=== PATIENT | female | born 1945 | race Caucasian/White ===

== ENCOUNTER 2018-03-14 18:40 | Emergency (ER) | payer OTHER ==
[2018-03-14] MEDS: IPRATROPIUM (NEB) 0.5 MG/2.5 ML AMP INH (19:15)
[2018-03-14] MEDS: LEVALBUTEROL (NEB) 1.25 MG/0.5 ML AMP HHN (19:15)
[2018-03-14 19:31] LABS: ADD MAN DIFF? NO
[2018-03-14 19:35] LABS: BASOPHILS % 0.5 % (0.0-2.0); EOSINOPHILS # 0.3 10^3/ul (0.0-0.5); EOSINOPHILS % 3.3 % (0.0-7.0); HEMATOCRIT 39.7 % (37.0-47.0); HEMOGLOBIN 13.1 g/dl (12.0-16.0); LYMPHOCYTES # 3.1 10^3/ul (0.8-2.9); LYMPHOCYTES % 36.1 % (15.0-51.0); MEAN CORPUSCULAR HEMOGLOBIN 27.5 pg (29.0-33.0); MEAN CORPUSCULAR VOLUME 83.2 fl (82.0-101.0); MEAN PLATELET VOLUME 12.3 fl (7.4-10.4); MONOCYTE # 0.7 10^3/ul (0.3-0.9); MONOCYTES % 8.4 % (0.0-11.0); NEUTROPHIL # 4.4 10^3/ul (1.6-7.5); NEUTROPHILS % 51.5 % (39.0-77.0); PLATELET COUNT 196 10^3/UL (140-415); RED BLOOD COUNT 4.77 10^6/ul (4.20-5.40); RED CELL DISTRIBUTION WIDTH 14.4 % (11.5-14.5)
[2018-03-14 19:35] LABS: WHITE BLOOD COUNT 8.5 10^3/ul (4.8-10.8)
[2018-03-14] MEDS: ACETAMINOPHEN 325 MG TAB PO (19:39)
[2018-03-14 19:48] LABS: ANION GAP 14 (8-16); BLOOD UREA NITROGEN 12 mg/dl (7-20); CALCIUM 9.1 mg/dl (8.4-10.2); CARBON DIOXIDE 24 mmol/L (21-31); CHLORIDE 104 mmol/L (97-110); CREATININE 0.73 mg/dl (0.44-1.00); GLUCOSE 112 mg/dl (70-220); SODIUM 138 mmol/L (135-144)
[2018-03-14 19:57] LABS: B-TYPE NATRIURETIC PEPTIDE 541 PG/ML (0-125)
[2018-03-14 20:08] LABS: INR 0.99; PARTIAL THROMBOPLASTIN TIME 29.2 Sec (25.0-35.0); PROTIME 13.2 Sec (11.9-14.9)
== END 2018-03-14 20:37 | disposition home or self-care (01) ==
LOC: E/R 18:40
DX: J40 Bronchitis, not specified as acute or chronic (principal); R40.2142 Coma scale, eyes open, spontaneous, at arrival to emergency department; I50.9 Heart failure, unspecified; I10 Essential (primary) hypertension; R40.2252 Coma scale, best verbal response, oriented, at arrival to emergency department; R40.2362 Coma scale, best motor response, obeys commands, at arrival to emergency department
CPT/HCPCS: 36415; 71045; 80048; 83880; 85025; 85610; 85730; 93005; 94664; 99285-25

== ENCOUNTER 2019-05-26 18:03 | Inpatient (IN) | payer OTHER ==
[2019-05-26 18:19] LABS: ADD MAN DIFF? NO
[2019-05-26 18:23] LABS: BASOPHILS % 0.4 % (0.0-2.0); EOSINOPHILS # 0.1 10^3/ul (0.0-0.5); HEMATOCRIT 42.1 % (37.0-47.0); HEMOGLOBIN 13.7 g/dl (12.0-16.0); LYMPHOCYTES # 3.4 10^3/ul (0.8-2.9); LYMPHOCYTES % 40.3 % (15.0-51.0); MEAN CORPUSCULAR HEMOGLOBIN 27.1 pg (29.0-33.0); MEAN CORPUSCULAR HGB CONC 32.5 g/dl (32.0-37.0); MEAN CORPUSCULAR VOLUME 83.4 fl (82.0-101.0); MEAN PLATELET VOLUME 12.6 fl (7.4-10.4); MONOCYTE # 0.6 10^3/ul (0.3-0.9); MONOCYTES % 7.7 % (0.0-11.0); NEUTROPHIL # 4.2 10^3/ul (1.6-7.5); NEUTROPHILS % 50.2 % (39.0-77.0); PLATELET COUNT 166 10^3/UL (140-415); RED BLOOD COUNT 5.05 10^6/ul (4.20-5.40); RED CELL DISTRIBUTION WIDTH 15.3 % (11.5-14.5)
[2019-05-26 18:23] LABS: WHITE BLOOD COUNT 8.3 10^3/ul (4.8-10.8)
[2019-05-26] MEDS: SOD CHLORIDE 0.9% 1,000 ML IV (18:37)
[2019-05-26] MEDS: ASPIRIN 300 MG SUPP PR (18:38)
[2019-05-26 18:41] LABS: ALANINE AMINOTRANSFERASE 32 IU/L (13-69); ALBUMIN 4.2 g/dl (3.3-4.9); ALBUMIN/GLOBULIN RATIO 1.02; ALKALINE PHOSPHATASE 170 IU/L (42-121); ANION GAP 9 (5-13); ASPARTATE AMINO TRANSFERASE 39 IU/L (15-46); BILIRUBIN,INDIRECT 0.4 mg/dl (0-1.1); BILIRUBIN,TOTAL 0.4 mg/dl (0.2-1.3); BLOOD UREA NITROGEN 17 mg/dl (7-20); CALCIUM 9.3 mg/dl (8.4-10.2); CARBON DIOXIDE 27 mmol/L (21-31); CHLORIDE 103 mmol/L (97-110); CHOL/HDL RATIO 3.8 RATIO; CHOLESTEROL 194 mg/dl (100-200); CREATINE KINASE 69 IU/L (23-200); CREATININE 0.63 mg/dl (0.44-1.00); GLUCOSE 131 mg/dl (70-220); HDL CHOLESTEROL 50 mg/dl (33-92); LDL CHOLESTEROL,CALCULATED 106 mg/dl; POTASSIUM 4.2 mmol/L (3.5-5.1); SODIUM 139 mmol/L (135-144); TOTAL PROTEIN 8.3 g/dl (6.1-8.1); TRIGLYCERIDES 190 mg/dl (0-149)
[2019-05-26 18:44] LABS: INR 0.95; PARTIAL THROMBOPLASTIN TIME 29.1 Sec (23.0-35.0); PROTIME 12.8 Sec (11.9-14.9)
[2019-05-26 18:49] LABS: CK INDEX 0.6; CK-MB 0.44 ng/ml (0.0-2.4)
[2019-05-26 18:52] LABS: ETHANOL < 10.0 mg/dl (0-0)
[2019-05-26 18:54] LABS: TROPONIN-I < 0.012 ng/ml (0.000-0.120)
[2019-05-26] MEDS: ENALAPRILAT 1.25 MG INJ IV (19:04)
[2019-05-26] MEDS: CLOPIDOGREL 75 MG TAB PO (19:04)
[2019-05-26 19:14] LABS: ADD UMIC NO; UR ASCORBIC ACID NEGATIVE (NEGATIVE); UR BILIRUBIN (Dip) NEGATIVE (NEGATIVE); UR BLOOD (Dip) NEGATIVE (NEGATIVE); UR CLARITY CLEAR (CLEAR); UR COLOR STRAW (YELLOW); UR GLUCOSE (Dip) NEGATIVE (NEGATIVE); UR KETONES (Dip) NEGATIVE (NEGATIVE); UR LEUKOCYTE ESTERASE (Dip) NEGATIVE Leu/ul (NEGATIVE); UR NITRITE (Dip) NEGATIVE (NEGATIVE); UR SPECIFIC GRAVITY (Dip) 1.006 (1.003-1.030); UR TOTAL PROTEIN (Dip) NEGATIVE (NEGATIVE); UR UROBILINOGEN (Dip) NEGATIVE (NEGATIVE)
[2019-05-26] MEDS: ALTEPLASE (tPA) 1 MG/ML BOLUS SYG IV* (19:17)
[2019-05-26] MEDS: ALTEPLASE 100 MG INJ IV* (19:17)
[2019-05-26] MEDS: SOD CHLORIDE 0.9% 50 ML IV (19:17)
[2019-05-26 19:28] LABS: AMPHETAMINE/METHAMPHETAMINE Negative (NEGATIVE); BARBITURATES Negative (NEGATIVE); BENZODIAZEPINES Negative (NEGATIVE); CANNABINOIDS Negative (NEGATIVE); COCAINE Negative (NEGATIVE); OPIATES Negative (NEGATIVE)
[2019-05-26] MEDS ORDERED: BISACODYL (EC) 5 MG TAB PO (20:00)
[2019-05-26] MEDS ORDERED: NACL 0.9% 3 ML SYG IV (20:00)
[2019-05-26] MEDS ORDERED: ONDANSETRON 4 MG INJ IV (20:00)
[2019-05-26] MEDS ORDERED: DOCUSATE SODIUM 100 MG CAP PO (20:00)
[2019-05-26] MEDS: IOHEXOL 100 ML (20:13)
[2019-05-26] MEDS: SOD CHLORIDE 0.9% 100 ML (20:13)
[2019-05-27] MEDS: ATORVASTATIN 40 MG TAB PO ×2 (03:38→21:20)
[2019-05-27 05:58] LABS: WHITE BLOOD COUNT 6.6 10^3/ul (4.8-10.8)
[2019-05-27 05:58] LABS: ADD MAN DIFF? NO; BASOPHILS % 0.5 % (0.0-2.0); EOSINOPHILS # 0.1 10^3/ul (0.0-0.5); EOSINOPHILS % 1.2 % (0.0-7.0); HEMATOCRIT 38.7 % (37.0-47.0); HEMOGLOBIN 12.4 g/dl (12.0-16.0); LYMPHOCYTES % 30.2 % (15.0-51.0); MEAN CORPUSCULAR VOLUME 84.3 fl (82.0-101.0); MEAN PLATELET VOLUME 12.7 fl (7.4-10.4); MONOCYTE # 0.7 10^3/ul (0.3-0.9); MONOCYTES % 10.1 % (0.0-11.0); NEUTROPHIL # 3.8 10^3/ul (1.6-7.5); NEUTROPHILS % 57.8 % (39.0-77.0); PLATELET COUNT 157 10^3/UL (140-415); RED BLOOD COUNT 4.59 10^6/ul (4.20-5.40); RED CELL DISTRIBUTION WIDTH 15.4 % (11.5-14.5)
[2019-05-27 06:55] LABS: ALANINE AMINOTRANSFERASE 26 IU/L (13-69); ALBUMIN 3.3 g/dl (3.3-4.9); ALBUMIN/GLOBULIN RATIO 0.97; ALKALINE PHOSPHATASE 99 IU/L (42-121); ANION GAP 6 (5-13); ASPARTATE AMINO TRANSFERASE 31 IU/L (15-46); BILIRUBIN,INDIRECT 0.8 mg/dl (0-1.1); BILIRUBIN,TOTAL 0.8 mg/dl (0.2-1.3); BLOOD UREA NITROGEN 10 mg/dl (7-20); CALCIUM 8.7 mg/dl (8.4-10.2); CARBON DIOXIDE 27 mmol/L (21-31); CHLORIDE 106 mmol/L (97-110); CREATININE 0.52 mg/dl (0.44-1.00); GLUCOSE 108 mg/dl (70-220); POTASSIUM 3.5 mmol/L (3.5-5.1); SODIUM 139 mmol/L (135-144); TOTAL PROTEIN 6.7 g/dl (6.1-8.1)
[2019-05-27] MEDS: CLOPIDOGREL 75 MG TAB PO (10:06)
[2019-05-27] MEDS: ASPIRIN 81 MG TAB PO (10:07)
[2019-05-28 05:39] LABS: ADD MAN DIFF? NO
[2019-05-28 05:53] LABS: ABNORMAL IP MESSAGE 1; BASOPHILS % 0.5 % (0.0-2.0); EOSINOPHILS # 0.1 10^3/ul (0.0-0.5); EOSINOPHILS % 2.1 % (0.0-7.0); HEMOGLOBIN 13.1 g/dl (12.0-16.0); LYMPHOCYTES # 2.2 10^3/ul (0.8-2.9); LYMPHOCYTES % 38.5 % (15.0-51.0); MEAN CORPUSCULAR VOLUME 84.5 fl (82.0-101.0); MEAN PLATELET VOLUME 13.3 fl (7.4-10.4); MONOCYTE # 0.6 10^3/ul (0.3-0.9); MONOCYTES % 10.2 % (0.0-11.0); NEUTROPHIL # 2.8 10^3/ul (1.6-7.5); NEUTROPHILS % 48.5 % (39.0-77.0); PLATELET COUNT 159 10^3/UL (140-415); RED BLOOD COUNT 4.85 10^6/ul (4.20-5.40); RED CELL DISTRIBUTION WIDTH 15.3 % (11.5-14.5)
[2019-05-28 05:53] LABS: WHITE BLOOD COUNT 5.8 10^3/ul (4.8-10.8)
[2019-05-28 06:14] LABS: ALANINE AMINOTRANSFERASE 21 IU/L (13-69); ALBUMIN 3.7 g/dl (3.3-4.9); ALBUMIN/GLOBULIN RATIO 1.12; ALKALINE PHOSPHATASE 81 IU/L (42-121); ANION GAP 7 (5-13); ASPARTATE AMINO TRANSFERASE 32 IU/L (15-46); BILIRUBIN,INDIRECT 0.9 mg/dl (0-1.1); BILIRUBIN,TOTAL 0.9 mg/dl (0.2-1.3); BLOOD UREA NITROGEN 14 mg/dl (7-20); CALCIUM 8.9 mg/dl (8.4-10.2); CARBON DIOXIDE 27 mmol/L (21-31); CHLORIDE 104 mmol/L (97-110); CREATININE 0.62 mg/dl (0.44-1.00); GLUCOSE 113 mg/dl (70-220); SODIUM 138 mmol/L (135-144)
[2019-05-28 06:20] LABS: POSITIVE DIFF @See below
[2019-05-28 06:44] LABS: POTASSIUM 3.7 mmol/L (3.5-5.1)
[2019-05-28] MEDS: CLOPIDOGREL 75 MG TAB PO (09:55)
[2019-05-28] MEDS: ASPIRIN 81 MG TAB PO (09:55)
[2019-05-28] MEDS: ATORVASTATIN 40 MG TAB PO (20:43)
[2019-05-28] MEDS: LOSARTAN 50 MG TAB PO (23:00)
[2019-05-29 05:51] LABS: ADD MAN DIFF? NO
[2019-05-29 06:06] LABS: BASOPHILS % 0.5 % (0.0-2.0); EOSINOPHILS # 0.1 10^3/ul (0.0-0.5); EOSINOPHILS % 2.2 % (0.0-7.0); HEMATOCRIT 41.6 % (37.0-47.0); HEMOGLOBIN 13.3 g/dl (12.0-16.0); LYMPHOCYTES # 2.1 10^3/ul (0.8-2.9); LYMPHOCYTES % 33.3 % (15.0-51.0); MEAN CORPUSCULAR HEMOGLOBIN 26.8 pg (29.0-33.0); MEAN CORPUSCULAR VOLUME 83.9 fl (82.0-101.0); MEAN PLATELET VOLUME 12.9 fl (7.4-10.4); MONOCYTE # 0.6 10^3/ul (0.3-0.9); MONOCYTES % 8.8 % (0.0-11.0); NEUTROPHIL # 3.5 10^3/ul (1.6-7.5); PLATELET COUNT 151 10^3/UL (140-415); RED BLOOD COUNT 4.96 10^6/ul (4.20-5.40); RED CELL DISTRIBUTION WIDTH 15.3 % (11.5-14.5)
[2019-05-29 06:06] LABS: WHITE BLOOD COUNT 6.3 10^3/ul (4.8-10.8)
[2019-05-29 06:46] LABS: ALANINE AMINOTRANSFERASE 24 IU/L (13-69); ALBUMIN 3.7 g/dl (3.3-4.9); ALBUMIN/GLOBULIN RATIO 1.08; ALKALINE PHOSPHATASE 87 IU/L (42-121); ANION GAP 9 (5-13); ASPARTATE AMINO TRANSFERASE 29 IU/L (15-46); BILIRUBIN,INDIRECT 0.7 mg/dl (0-1.1); BILIRUBIN,TOTAL 0.7 mg/dl (0.2-1.3); BLOOD UREA NITROGEN 15 mg/dl (7-20); CALCIUM 8.9 mg/dl (8.4-10.2); CARBON DIOXIDE 27 mmol/L (21-31); CHLORIDE 104 mmol/L (97-110); CREATININE 0.62 mg/dl (0.44-1.00); GLUCOSE 110 mg/dl (70-220); POTASSIUM 3.7 mmol/L (3.5-5.1); SODIUM 140 mmol/L (135-144); TOTAL PROTEIN 7.1 g/dl (6.1-8.1)
[2019-05-29] MEDS: hydrALAzine 20 MG INJ IV ×2 (07:43→20:13)
[2019-05-29] MEDS: ASPIRIN 81 MG TAB PO (08:36)
[2019-05-29] MEDS: LOSARTAN 50 MG TAB PO (08:37)
[2019-05-29 10:02] LABS: ERYTHROCYTE SEDIMENTATION RATE 7 mm/Hr (0-30)
[2019-05-29] MEDS: ACETAMINOPHEN 325 MG TAB PO (17:10)
[2019-05-29 17:15] LABS: RAPID PLASMA REAGIN NONREACTIVE (NR)
[2019-05-29] MEDS: ATORVASTATIN 40 MG TAB PO (20:12)
[2019-05-30 05:37] LABS: ADD MAN DIFF? NO
[2019-05-30 05:45] LABS: ABNORMAL IP MESSAGE 1; BASOPHILS % 0.4 % (0.0-2.0); EOSINOPHILS # 0.1 10^3/ul (0.0-0.5); EOSINOPHILS % 1.2 % (0.0-7.0); HEMATOCRIT 41.7 % (37.0-47.0); HEMOGLOBIN 13.5 g/dl (12.0-16.0); LYMPHOCYTES # 1.9 10^3/ul (0.8-2.9); LYMPHOCYTES % 23.1 % (15.0-51.0); MEAN CORPUSCULAR HEMOGLOBIN 26.9 pg (29.0-33.0); MEAN CORPUSCULAR HGB CONC 32.4 g/dl (32.0-37.0); MEAN CORPUSCULAR VOLUME 83.2 fl (82.0-101.0); MEAN PLATELET VOLUME 13.4 fl (7.4-10.4); MONOCYTES % 11.9 % (0.0-11.0); NEUTROPHIL # 5.2 10^3/ul (1.6-7.5); PLATELET COUNT 165 10^3/UL (140-415); RED BLOOD COUNT 5.01 10^6/ul (4.20-5.40); RED CELL DISTRIBUTION WIDTH 15.5 % (11.5-14.5)
[2019-05-30 05:45] LABS: WHITE BLOOD COUNT 8.3 10^3/ul (4.8-10.8)
[2019-05-30 05:52] LABS: POSITIVE DIFF @See below
[2019-05-30 05:55] LABS: ALANINE AMINOTRANSFERASE 28 IU/L (13-69); ALBUMIN 3.5 g/dl (3.3-4.9); ALBUMIN/GLOBULIN RATIO 0.94; ALKALINE PHOSPHATASE 84 IU/L (42-121); ANION GAP 7 (5-13); ASPARTATE AMINO TRANSFERASE 26 IU/L (15-46); BILIRUBIN,INDIRECT 1.2 mg/dl (0-1.1); BILIRUBIN,TOTAL 1.2 mg/dl (0.2-1.3); BLOOD UREA NITROGEN 13 mg/dl (7-20); CALCIUM 8.9 mg/dl (8.4-10.2); CARBON DIOXIDE 27 mmol/L (21-31); CHLORIDE 103 mmol/L (97-110); CREATININE 0.56 mg/dl (0.44-1.00); GLUCOSE 122 mg/dl (70-220); POTASSIUM 3.9 mmol/L (3.5-5.1); SODIUM 137 mmol/L (135-144); TOTAL PROTEIN 7.2 g/dl (6.1-8.1)
[2019-05-30] MEDS: ASPIRIN 81 MG TAB PO (08:18)
[2019-05-30] MEDS: LOSARTAN 50 MG TAB PO (08:19)
[2019-05-30 11:17] LABS: ADD MAN DIFF? NO
[2019-05-30 11:22] LABS: ABNORMAL IP MESSAGE 1; BASOPHILS % 0.2 % (0.0-2.0); EOSINOPHILS # 0.1 10^3/ul (0.0-0.5); EOSINOPHILS % 0.8 % (0.0-7.0); HEMATOCRIT 42.8 % (37.0-47.0); HEMOGLOBIN 13.9 g/dl (12.0-16.0); LYMPHOCYTES % 21.6 % (15.0-51.0); MEAN CORPUSCULAR HEMOGLOBIN 27.3 pg (29.0-33.0); MEAN CORPUSCULAR HGB CONC 32.5 g/dl (32.0-37.0); MEAN CORPUSCULAR VOLUME 84.1 fl (82.0-101.0); MEAN PLATELET VOLUME 13.7 fl (7.4-10.4); MONOCYTE # 1.1 10^3/ul (0.3-0.9); MONOCYTES % 11.7 % (0.0-11.0); NEUTROPHIL # 6.1 10^3/ul (1.6-7.5); NEUTROPHILS % 65.4 % (39.0-77.0); PLATELET COUNT 172 10^3/UL (140-415); RED BLOOD COUNT 5.09 10^6/ul (4.20-5.40); RED CELL DISTRIBUTION WIDTH 15.5 % (11.5-14.5)
[2019-05-30 11:22] LABS: WHITE BLOOD COUNT 9.3 10^3/ul (4.8-10.8)
[2019-05-30 11:28] LABS: POSITIVE DIFF @See below
[2019-05-30] MEDS: ATORVASTATIN 40 MG TAB PO (20:35)
[2019-05-31] MEDS: traMADol 50 MG TAB PO (01:16)
[2019-05-31 05:53] LABS: ADD MAN DIFF? NO
[2019-05-31 05:59] LABS: ABNORMAL IP MESSAGE 1; BASOPHILS % 0.4 % (0.0-2.0); EOSINOPHILS # 0.1 10^3/ul (0.0-0.5); EOSINOPHILS % 1.5 % (0.0-7.0); HEMOGLOBIN 13.1 g/dl (12.0-16.0); LYMPHOCYTES # 2.5 10^3/ul (0.8-2.9); LYMPHOCYTES % 28.9 % (15.0-51.0); MEAN CORPUSCULAR HEMOGLOBIN 27.2 pg (29.0-33.0); MEAN CORPUSCULAR VOLUME 85.2 fl (82.0-101.0); MEAN PLATELET VOLUME 13.5 fl (7.4-10.4); MONOCYTE # 1.1 10^3/ul (0.3-0.9); MONOCYTES % 12.7 % (0.0-11.0); NEUTROPHIL # 4.8 10^3/ul (1.6-7.5); NEUTROPHILS % 56.3 % (39.0-77.0); PLATELET COUNT 162 10^3/UL (140-415); RED BLOOD COUNT 4.81 10^6/ul (4.20-5.40); RED CELL DISTRIBUTION WIDTH 15.4 % (11.5-14.5)
[2019-05-31 05:59] LABS: WHITE BLOOD COUNT 8.5 10^3/ul (4.8-10.8)
[2019-05-31 06:14] LABS: POSITIVE DIFF @See below
[2019-05-31 06:25] LABS: ANION GAP 6 (5-13); BLOOD UREA NITROGEN 17 mg/dl (7-20); CALCIUM 8.7 mg/dl (8.4-10.2); CARBON DIOXIDE 26 mmol/L (21-31); CHLORIDE 105 mmol/L (97-110); CREATININE 0.61 mg/dl (0.44-1.00); GLUCOSE 111 mg/dl (70-220); MAGNESIUM 2.2 mg/dl (1.7-2.5); PHOSPHORUS 4.3 mg/dl (2.5-4.9); POTASSIUM 4.2 mmol/L (3.5-5.1); SODIUM 137 mmol/L (135-144)
[2019-05-31] MEDS: ASPIRIN 81 MG TAB PO (08:50)
[2019-05-31] MEDS: LOSARTAN 50 MG TAB PO (08:51)
[2019-05-31] MEDS ORDERED: METOPROLOL (XL) 25 MG TAB PO (10:30)
[2019-05-31] MEDS: METOPROLOL (XL) 25 MG TAB PO (12:16)
== END 2019-05-31 15:44 | disposition home or self-care (01) | DRG 65 ==
LOC: E/R 18:03 → 6WM 22:53
PROVIDERS: Family Medicine
PROC: 3E0F7GC Introduction of Other Therapeutic Substance into Respiratory Tract, Via Natural or Artificial Opening (ICD-10-PCS; principal; 2019-05-26)
DX: I63.9 Cerebral infarction, unspecified (principal); I16.1 Hypertensive emergency; J44.9 Chronic obstructive pulmonary disease, unspecified; I48.0 Paroxysmal atrial fibrillation; R47.81 Slurred speech; R29.810 Facial weakness; R20.0 Anesthesia of skin; E66.9 Obesity, unspecified; Z68.38 Body mass index [BMI] 38.0-38.9, adult; J45.909 Unspecified asthma, uncomplicated; I10 Essential (primary) hypertension; E78.5 Hyperlipidemia, unspecified
CPT/HCPCS: 36415; 70450; 70496; 70498; 70544; 70549; 70551; 71045; 73520; 80048; 80053; 80061; 80307; 81003; 82550; 82553; 82962; 83036; 83735; 84100; 84484; 85025; 85610; 85651; 85730; 86592; 86850; 86900; 86901; 92523; 92610; 93005; 93306; 93880; 96374; 97161; 97166; 99285-25